=== PATIENT | male | born 1985 | race Caucasian/White ===

== ENCOUNTER 2019-06-19 21:33 | Emergency (ER) | payer MEDICAID, OTHER ==
[~2019-06-19] VITALS: Ht 177.8 cm; Wt 102.1 kg
[2019-06-20] MEDS ORDERED: KETOROLAC TROMETH 60MG/2ML VIAL IM ONE (01:00)
[2019-06-20] MEDS ORDERED: KETOROLAC TROMETH 30 MG/ML 1ML VIAL IV ONE (01:15)
[2019-06-20 01:40] VITALS: BP 108/60
== END 2019-06-20 01:51 | disposition home or self-care (01) ==
LOC: EDUNIT# 21:33 → EDBD 21:33 → ER 21:37
DX: M47.896 Other spondylosis, lumbar region (principal); S33.5XXA Sprain of ligaments of lumbar spine, initial encounter; X58.XXXA Exposure to other specified factors, initial encounter; Y93.89 Activity, other specified; Y92.89 Other specified places as the place of occurrence of the external cause; Y99.8 Other external cause status
CPT/HCPCS: 72131; 96374; 99284; J1885

== ENCOUNTER 2020-12-17 14:53 | Emergency (ER) | payer MEDICAID ==
[~2020-12-17] VITALS: Ht 175.3 cm; Wt 104.3 kg
[2020-12-17 15:47] VITALS: BP 132/80
== END 2020-12-17 16:56 | disposition home or self-care (01) ==
LOC: ER 14:53
DX: G56.01 Carpal tunnel syndrome, right upper limb (principal)
CPT/HCPCS: 29125